=== PATIENT | female | born 1960 | race Caucasian/White ===

== ENCOUNTER 2018-04-18 19:49 | Emergency (ER) | payer MEDICARE ==
[~2018-04-18] VITALS: Ht 162.5 cm; Wt 136.1 kg
--- NOTE | ~2018-04-18 | EKG ---
[place], [place] ELECTROCARDIOGRAM REPORT NAME: ZAINAB HOUSE UNIT #: [id number] ROOM: DOCTOR: SUPRIYA DRAFT REPORT BIRTHDATE: [birth year] [facility] Test Date: 2018-04-18 Test Time: 20:35:05 Pat Name: ZAINAB HOUSE Department: Room: Gender: F [employer]: : [id number] Requested By: PELON BRAXTON Order Number: [id number] Reading MD: Lawrence Bruno MD Measurements Intervals Hardy Rate: 86 P: 59 ME: 163 QRS: 32 QRSD: 65 T: 37 QT: 374 QTc: 448 Interpretive Statements Sinus rhythm Anteroseptal infarct, age indeterminate ST depression V1-V3, suggest recording posterior leads Electronically Signed On 04-19-2018 4:16:45 PST by Lawrence Bruno MD CM:EKGRPT:ELECTROCARDIOGRAM REPORT [id number] PELON GOLDBERG DRAFT REPORT PELON BRAXTON DO
[2018-04-18 20:29] LABS: BASO % 0.4 % (0.0-1.0); EOS # 0.1 10*3/uL (0.0-0.4); HEMATOCRIT 36.7 % (37.0-47.0); HEMOGLOBIN 12.3 g/dl (12.0-16.0); LYMPH # 2.3 10*3/uL (1.3-4.4); LYMPH % 21.4 % (27.0-41.0); MEAN CELL VOLUME 85.3 fl (81.0-99.0); MEAN CORPUSCULAR HGB 28.6 pg (27.0-31.0); MEAN CORPUSCULAR HGB CONC 33.5 g/dl (33.0-37.0); MEAN PLATELET VOLUME 11.5 fl (9.6-12.3); MONO # 0.4 10*3/uL (0.1-1.0); MONO % 3.9 % (3.0-9.0); NEUT # 7.8 10*3/uL (2.3-7.9); PLATELET COUNT AUTOMATED 258 10*3/uL (130-400); RED CELL DISTRI WIDTH 13.9 % (0-14.5); WHITE BLOOD COUNT 10.7 10*3/uL (4.8-10.8)
[2018-04-18 20:38] LABS: INTERNATIONAL NORM RATIO 3.3 (2.0-3.5)
[2018-04-18 20:46] LABS: ALBUMIN 3.8 gm/dl (3.1-4.5); ALKALINE PHOSPHATASE 95 U/L (45-117); BUN 18 mg/dl (7-24); CHLORIDE 103 mmol/L (98-107); CREATININE 1.36 mg/dL (0.55-1.02); POTASSIUM 4.1 mmol/L (3.5-5.1); SGOT/AST 41 IU/L (3-35); SGPT/ALT 40 U/L (12-78); SODIUM 136 mmol/L (136-145); TOTAL PROTEIN 8.8 gm/dL (6.4-8.2)
[2018-04-18 20:52] LABS: ETHYL ALCOHOL < 3.0 mg/dl (<3); TROPONIN I < 0.015 ng/ml (<0.045)
== END 2018-04-18 21:09 | disposition short-term general hospital (02) ==
LOC: ED 19:49
PROVIDERS: Emergency Medicine
DX: I61.9 Nontraumatic intracerebral hemorrhage, unspecified (principal)